=== PATIENT | male | born 1955 | race Caucasian/White ===

== ENCOUNTER 2022-12-05 10:59 | Inpatient (IN) | payer MEDICARE, OTHER ==
[~2022-12-05] VITALS: Ht 188 cm; Wt 101.2 kg
[2022-12-05] VITALS (13 sets, daily range): BP systolic 102–139; BP diastolic 62–108
[2022-12-05] MEDS ORDERED: DILTIAZEM HCL 5 MG/ML 5 ML VIAL IV ONE (11:15)
[2022-12-05 11:16] LABS: BASOPHILS % 0.3 % (0.0-1.0); EOSINOPHILS # (AUTO) 0.1 (0.0-0.4); HEMATOCRIT 44.7 % (38.2-49.6); LYMPHOCYTES # (AUTO) 0.7 (1.0-3.2); LYMPHOCYTES % 11.5 % (18.0-39.1); MEAN CORPUSCULAR HEMOGLOBIN 28.9 pg (28-32); MEAN CORPUSCULAR HGB CONC 31.3 g/dL (31-35); MEAN CORPUSCULAR VOLUME 92.4 fL (81-99); MONOCYTES # (AUTO) 0.5 (0.2-0.8); NEUTROPHILS # (AUTO) 4.7 (2.1-6.9); PLATELET COUNT 177 x10e3/uL (140-360); RED BLOOD COUNT 4.84 x10e6/uL (4.3-5.7); RED CELL DISTRIBUTION WIDTH 13.9 % (11.7-14.4)
[2022-12-05] MEDS ORDERED: DILTIAZEM HCL 5 MG/ML 5 ML VIAL IV STA (11:29)
[2022-12-05] MEDS ORDERED: DILTIAZEM HCL VIAL 5 ML ONE (11:32)
[2022-12-05 11:33] LABS: INR 1.16
[2022-12-05 11:34] LABS: ALBUMIN 2.6 g/dL (3.5-5.0); ALBUMIN/GLOBULIN RATIO 0.5 (0.8-2.0); CALCIUM 8.8 mg/dL (8.4-10.2); CREATININE, SERUM 0.98 mg/dL (0.72-1.25); PARTIAL THROMBOPLASTIN TIME 35.8 seconds (23.8-35.5)
[2022-12-05 12:00] LABS: CREATINE KINASE MB 1.8 ng/mL (0-5.0)
[2022-12-05] MEDS ORDERED: AMIODARONE HCL 150 MG/100 ML BAG IV ONE (12:00)
[2022-12-05] MEDS ORDERED: ONDANSETRON HCL INJ 2MG/ML 2ML 2 MG/ML VIAL IV PRN ×2 (13:00→13:45)
[2022-12-05] MEDS ORDERED: SODIUM CHLORIDE FLUSH 10 ML SYR INJ PRN (13:00)
[2022-12-05] MEDS ORDERED: METOPROLOL TARTRATE INJ 1 MG/ML VIAL IV PRN (13:45)
[2022-12-05] MEDS ORDERED: METOPROLOL TARTRATE INJ 1 MG/ML VIAL IV ONE (13:45)
[2022-12-05] MEDS ORDERED: TRAMADOL HCL 50 MG TAB PO PRN (13:45)
[2022-12-05] MEDS ORDERED: METOPROLOL TARTRATE 25 MG TAB PO SCH (14:00)
[2022-12-05] MEDS ORDERED: ALBUMIN 25% 12.5GM 50ML 150 ML IV ONE (14:14)
[2022-12-05 16:28] LABS: BODY FLUID APPEARANCE SL.CLOUDY; BODY FLUID COLOR YELLOW; BODY FLUID TYPE PERITONEAL; RBC,BODY FLUID 1000 cells/uL; WBC,BODY FLUID 563 cells/uL
[2022-12-05] MEDS ORDERED: AMIODARONE HCL 200 MG TAB PO SCH (17:00)
[2022-12-05] MEDS: DRONEDARONE 400 MG TAB PO SCH (17:32)
[2022-12-05] MEDS: SPIRONOLACTONE 25 MG TAB PO SCH (17:32)
[2022-12-05 17:40] LABS: LYMPHOCYTES,BODY FLUID 30 %; MONO/MACROPHG,BODY FLUID 16 %; NEUTROPHILS,BODY FLUID 54 %
[2022-12-05] MEDS ORDERED: ACETAMINOPHEN 325 MG TAB PO PRN (18:00)
[2022-12-05] MEDS ORDERED: ALEVE220 M1 PO (18:01)
[2022-12-05] MEDS ORDERED: METHADONE (18:01)
[2022-12-05] MEDS ORDERED: PREVACID30 MG PO (18:01)
[2022-12-05 20:07] LABS: CREATINE KINASE MB 1.8 ng/mL (0-5.0)
[2022-12-05] MEDS: APIXABAN 5 MG TABLET PO SCH (20:19)
[2022-12-05] MEDS: MELATONIN 3 MG TAB PO SCH (20:19)
[2022-12-05] MEDS: METOPROLOL TARTRATE 50 MG TAB PO SCH (20:20)
[2022-12-06] VITALS (10 sets, daily range): BP systolic 98–134; BP diastolic 67–88
[2022-12-06] MEDS: METOPROLOL TARTRATE 50 MG TAB PO SCH (06:03)
[2022-12-06 07:32] LABS: BASOPHILS % 0.3 % (0.0-1.0); EOSINOPHILS # (AUTO) 0.1 (0.0-0.4); HEMATOCRIT 35.3 % (38.2-49.6); LYMPHOCYTES # (AUTO) 0.8 (1.0-3.2); LYMPHOCYTES % 21.1 % (18.0-39.1); MEAN CORPUSCULAR HEMOGLOBIN 28.6 pg (28-32); MEAN CORPUSCULAR HGB CONC 31.2 g/dL (31-35); MEAN CORPUSCULAR VOLUME 91.9 fL (81-99); MONOCYTES # (AUTO) 0.5 (0.2-0.8); MONOCYTES % 11.6 % (4.4-11.3); NEUTROPHILS # (AUTO) 2.6 (2.1-6.9); NEUTROPHILS % 64.7 % (38.7-80.0); PLATELET COUNT 114 x10e3/uL (140-360); RED BLOOD COUNT 3.84 x10e6/uL (4.3-5.7)
[2022-12-06 08:08] LABS: ALBUMIN 2.4 g/dL (3.5-5.0); ALBUMIN/GLOBULIN RATIO 0.6 (0.8-2.0); CREATININE, SERUM 0.76 mg/dL (0.72-1.25)
[2022-12-06] MEDS: SENNOSIDES 8.6 MG TAB PO SCH (08:08)
[2022-12-06] MEDS: SPIRONOLACTONE 25 MG TAB PO SCH ×2 (08:09→18:03)
[2022-12-06] MEDS: APIXABAN 5 MG TABLET PO SCH ×2 (08:09→18:03)
[2022-12-06] MEDS: FUROSEMIDE 40 MG TAB PO SCH (08:09)
[2022-12-06] MEDS: DRONEDARONE 400 MG TAB PO SCH ×2 (08:11→18:04)
[2022-12-06] MEDS: ASPIRIN 81 MG ENTERIC COATED PO SCH (08:12)
[2022-12-06] MEDS ORDERED: MULTAQ 400MG T400 MG PO ×2 (10:11→11:21)
[2022-12-06] MEDS ORDERED: TOPROL XL50 MG PO (11:21)
[2022-12-06] MEDS ORDERED: ELIQUIS5 MG PO (11:21)
[2022-12-06] MEDS ORDERED: ALDACTONE25 MG PO (11:21)
[2022-12-06] MEDS ORDERED: FUROSEMIDE40 MG PO (11:21)
[2022-12-06] MEDS ORDERED: CEFTRIAXONE 2 GM in SODIUM CHLORIDE 0.9% 100 ML IV ONE (16:30)
[2022-12-06] MEDS ORDERED: SODIUM CHLORIDE 0.9% 250ML 250 ML ONE (18:10)
[2022-12-06] MEDS: MELATONIN 3 MG TAB PO SCH (20:32)
[2022-12-07] VITALS (9 sets, daily range): BP systolic 99–128; BP diastolic 65–82
[2022-12-07 06:13] LABS: BASOPHILS % 0.3 % (0.0-1.0); EOSINOPHILS # (AUTO) 0.1 (0.0-0.4); EOSINOPHILS % 2.7 % (0.0-6.0); HEMATOCRIT 36.3 % (38.2-49.6); HEMOGLOBIN 11.4 g/dL (14.0-18.0); LYMPHOCYTES # (AUTO) 0.9 (1.0-3.2); MEAN CORPUSCULAR HEMOGLOBIN 28.6 pg (28-32); MEAN CORPUSCULAR HGB CONC 31.4 g/dL (31-35); MEAN CORPUSCULAR VOLUME 91.2 fL (81-99); MONOCYTES # (AUTO) 0.5 (0.2-0.8); MONOCYTES % 14.3 % (4.4-11.3); NEUTROPHILS # (AUTO) 2.1 (2.1-6.9); NEUTROPHILS % 57.4 % (38.7-80.0); PLATELET COUNT 115 x10e3/uL (140-360); RED BLOOD COUNT 3.98 x10e6/uL (4.3-5.7); RED CELL DISTRIBUTION WIDTH 13.5 % (11.7-14.4)
[2022-12-07 06:40] LABS: ANION GAP 10.6 mmol/L (8-16); CALCIUM 7.9 mg/dL (8.4-10.2); CREATININE, SERUM 0.84 mg/dL (0.72-1.25); POTASSIUM 3.6 mmol/L (3.5-5.1)
[2022-12-07] MEDS: METHADONE HCL 10 MG TAB PO SCH (09:00)
[2022-12-07] MEDS: SPIRONOLACTONE 25 MG TAB PO SCH ×2 (09:05→17:05)
[2022-12-07] MEDS: APIXABAN 5 MG TABLET PO SCH ×2 (09:06→17:06)
[2022-12-07] MEDS: ASPIRIN 81 MG ENTERIC COATED PO SCH (09:06)
[2022-12-07] MEDS: METOPROLOL SUCCINATE 50 MG TAB XL PO SCH (09:06)
[2022-12-07] MEDS: DRONEDARONE 400 MG TAB PO SCH ×2 (09:07→17:05)
[2022-12-07] MEDS: FUROSEMIDE 40 MG TAB PO SCH (09:07)
[2022-12-07] MEDS: SENNOSIDES 8.6 MG TAB PO SCH (09:07)
[2022-12-07] MEDS: CEFTRIAXONE 2 GM in SODIUM CHLORIDE 0.9% 100 ML IV SCH (13:18)
[2022-12-07] MEDS: MELATONIN 3 MG TAB PO SCH (20:17)
[2022-12-08 05:55] LABS: BASOPHILS % 0.5 % (0.0-1.0); EOSINOPHILS # (AUTO) 0.1 (0.0-0.4); EOSINOPHILS % 2.5 % (0.0-6.0); HEMATOCRIT 35.1 % (38.2-49.6); HEMOGLOBIN 11.2 g/dL (14.0-18.0); MEAN CORPUSCULAR HEMOGLOBIN 28.9 pg (28-32); MEAN CORPUSCULAR HGB CONC 31.9 g/dL (31-35); MEAN CORPUSCULAR VOLUME 90.7 fL (81-99); MONOCYTES # (AUTO) 0.5 (0.2-0.8); MONOCYTES % 13.7 % (4.4-11.3); NEUTROPHILS % 55.8 % (38.7-80.0); PLATELET COUNT 129 x10e3/uL (140-360); RED BLOOD COUNT 3.87 x10e6/uL (4.3-5.7); RED CELL DISTRIBUTION WIDTH 13.7 % (11.7-14.4)
[2022-12-08 06:21] LABS: ANION GAP 13.6 mmol/L (8-16); CALCIUM 7.8 mg/dL (8.4-10.2); CREATININE, SERUM 0.84 mg/dL (0.72-1.25); MAGNESIUM 1.9 MG/DL (1.3-2.1); PHOSPHORUS 3.7 MG/DL (2.3-4.7); POTASSIUM 3.6 mmol/L (3.5-5.1)
[2022-12-08 08:15] VITALS: BP 99/66
[2022-12-08] MEDS ORDERED: DOCUSATE SODIUM 100 MG CAP PO SCH (09:00)
[2022-12-08] MEDS: METOPROLOL SUCCINATE 50 MG TAB XL PO SCH (09:00)
[2022-12-08] MEDS: SENNOSIDES 8.6 MG TAB PO SCH (09:19)
[2022-12-08] MEDS: FUROSEMIDE 40 MG TAB PO SCH (09:19)
[2022-12-08] MEDS: CEFTRIAXONE 2 GM in SODIUM CHLORIDE 0.9% 100 ML IV SCH (09:20)
[2022-12-08] MEDS: DRONEDARONE 400 MG TAB PO SCH (09:20)
[2022-12-08] MEDS: ASPIRIN 81 MG ENTERIC COATED PO SCH (09:20)
[2022-12-08] MEDS: APIXABAN 5 MG TABLET PO SCH (09:21)
[2022-12-08] MEDS: SPIRONOLACTONE 25 MG TAB PO SCH (09:22)
[2022-12-08] MEDS: METHADONE HCL 10 MG TAB PO SCH (09:22)
[2022-12-08] MEDS ORDERED: CIPRO500 MG PO (10:49)
[2022-12-08 12:17] VITALS: BP 105/75
[2022-12-08] MEDS ORDERED: ONDANSETRON HCL 4 MG ORAL DISINTEGRATING TAB PO PRN (12:45)
== END 2022-12-08 15:00 | disposition home or self-care (01) | DRG 432 ==
LOC: ER 11:09 → ERHOLD 13:06 → OBSVTOIN 13:06 → ICU 18:30 → MED/SURG3 12-06 14:30
PROVIDERS: ADMIT Family Medicine Adult Medicine; ATTEND Family Medicine Adult Medicine
PROC: 0W9G3ZZ Drainage of Peritoneal Cavity, Percutaneous Approach (ICD-10-PCS; principal; 2022-12-05)
DX: K70.31 Alcoholic cirrhosis of liver with ascites (principal); I50.43 Acute on chronic combined systolic (congestive) and diastolic (congestive) heart failure; K65.2 Spontaneous bacterial peritonitis; I48.20 Chronic atrial fibrillation, unspecified; K76.6 Portal hypertension; D61.818 Other pancytopenia; I11.0 Hypertensive heart disease with heart failure; F10.20 Alcohol dependence, uncomplicated; I08.3 Combined rheumatic disorders of mitral, aortic and tricuspid valves; F19.11 Other psychoactive substance abuse, in remission; F11.90 Opioid use, unspecified, uncomplicated; J44.9 Chronic obstructive pulmonary disease, unspecified; I27.20 Pulmonary hypertension, unspecified; R16.1 Splenomegaly, not elsewhere classified; F17.290 Nicotine dependence, other tobacco product, uncomplicated; Z90.89 Acquired absence of other organs; Z59.6 Low income; Z90.49 Acquired absence of other specified parts of digestive tract; Z98.1 Arthrodesis status; Z90.79 Acquired absence of other genital organ(s); Z82.3 Family history of stroke; Z80.9 Family history of malignant neoplasm, unspecified; Z83.79 Family history of other diseases of the digestive system; Z79.899 Other long term (current) drug therapy; Z79.1 Long term (current) use of non-steroidal anti-inflammatories (NSAID)
CPT/HCPCS: 36415; 49083; 71045; 76700; 76705; 80048; 80053; 82040; 82140; 82248; 82550; 82553; 83735; 83880; 84100; 84157; 84443; 84484; 85025; 85610; 85730; 86704; 87070; 87205; 87340; 88112; 88300; 88305; 89051; 93005; 93306; 94799; 99285; C1729; J0696; J7050

== ENCOUNTER → 2022-12-05 | Outpatient (CLI) | payer MEDICARE ==
[~2022-12-05] MED LIST: ALDACTONE25 MG PO; ALEVE220 M1 PO; CIPRO500 MG PO; ELIQUIS5 MG PO; FUROSEMIDE40 MG PO; METHADONE; MULTAQ 400MG T400 MG PO; PREVACID30 MG PO; TOPROL XL50 MG PO
[2022-12-05 11:21] LABS: INR 1.13; PARTIAL THROMBOPLASTIN TIME 34.5 seconds (23.8-35.5); PROTHROMBIN TIME 14.7 seconds (11.9-14.5)
== END ==
LOC: US 10:03
PROVIDERS: ATTEND Family Medicine Adult Medicine
DX: R14.0 Abdominal distension (gaseous) (principal)
CPT/HCPCS: 36415; 76705; 85610; 85730

== ENCOUNTER 2023-01-13 21:02 | Emergency (ER) | payer MEDICARE, OTHER ==
[~2023-01-13] VITALS: Ht 188 cm; Wt 101.2 kg
[2023-01-13] MEDS ORDERED: ONDANSETRON HCL INJ 2MG/ML 2ML 2 MG/ML VIAL ONE (23:47)
[2023-01-13] MEDS ORDERED: SODIUM CHLORIDE 0.9% 1000ML 1,000 ML ONE (23:47)
[2023-01-13] MEDS ORDERED: ONDANSETRON HCL INJ 2MG/ML 2ML 2 MG/ML VIAL IV STA (23:48)
[2023-01-13] MEDS ORDERED: SODIUM CHLORIDE FLUSH 10 ML SYR IV PRN (23:49)
[2023-01-13] MEDS ORDERED: SODIUM CHLORIDE 0.9% 1000ML 1,000 ML IV ONE (23:49)
[2023-01-13 23:54] LABS: BASOPHILS % 0.4 % (0.0-1.0); EOSINOPHILS % 0.1 % (0.0-6.0); HEMOGLOBIN 13.7 g/dL (14.0-18.0); LYMPHOCYTES # (AUTO) 0.6 (1.0-3.2); LYMPHOCYTES % 8.7 % (18.0-39.1); MEAN CORPUSCULAR HEMOGLOBIN 29.2 pg (28-32); MEAN CORPUSCULAR HGB CONC 33.4 g/dL (31-35); MEAN CORPUSCULAR VOLUME 87.4 fL (81-99); MONOCYTES # (AUTO) 0.2 (0.2-0.8); MONOCYTES % 3.2 % (4.4-11.3); NEUTROPHILS # (AUTO) 6.3 (2.1-6.9); NEUTROPHILS % 86.8 % (38.7-80.0); PLATELET COUNT 137 x10e3/uL (140-360); RED BLOOD COUNT 4.69 x10e6/uL (4.3-5.7); RED CELL DISTRIBUTION WIDTH 13.8 % (11.7-14.4)
[2023-01-13 23:58] LABS: INR 1.14; PROTHROMBIN TIME 14.8 seconds (11.9-14.5)
[2023-01-13 23:59] LABS: PARTIAL THROMBOPLASTIN TIME 34.3 seconds (23.8-35.5)
[2023-01-14 00:08] LABS: ALBUMIN 3.3 g/dL (3.5-5.0); ALBUMIN/GLOBULIN RATIO 0.6 (0.8-2.0); ANION GAP 17.8 mmol/L (8-16); CALCIUM 9.2 mg/dL (8.4-10.2); CREATININE, SERUM 0.87 mg/dL (0.72-1.25); POTASSIUM 3.8 mmol/L (3.5-5.1)
[2023-01-14] MEDS ORDERED: IOPAMIDOL 370 MG/ML 100 ML INFUS..BTL INJ ONE (00:36)
[2023-01-14 02:51] LABS: CLARITY,URINE CLEAR (CLEAR); COLOR,URINE YELLOW (YELLOW); KETONES,URINE NEGATIVE (NEGATIVE); LEUKOCYTE ESTERASE ,URINE NEGATIVE (NEGATIVE); NITRITE,URINE NEGATIVE (NEGATIVE); PROTEIN,URINE DIPSTICK NEGATIVE (NEGATIVE); URINE UROBILINOGEN 0.2 mg/dL (0.2 - 1)
[2023-01-14 02:57] LABS: BACTERIA,URINE RARE /HPF; WBC,URINE (MAN) 0-5 /HPF (0-5)
[2023-01-14] MEDS ORDERED: ONDANSETRON ODT4 MG PO (03:18)
== END 2023-01-14 03:30 | disposition home or self-care (01) ==
LOC: ER 21:12
DX: R10.11 Right upper quadrant pain (principal); R10.31 Right lower quadrant pain; K74.60 Unspecified cirrhosis of liver; R11.2 Nausea with vomiting, unspecified; R19.7 Diarrhea, unspecified; Z20.822 Contact with and (suspected) exposure to COVID-19; R94.31 Abnormal electrocardiogram [ECG] [EKG]
CPT/HCPCS: 36415; 71045; 74177; 80053; 81001; 83690; 84484; 85025; 85610; 85730; 93005; 99284; J2405; J7030; Q9967; U0002

== ENCOUNTER → 2023-01-14 | Day surgery (SDC) | payer MEDICARE, OTHER ==
[2023-01-06 16:20] LABS: BASOPHILS % 0.2 % (0.0-1.0); EOSINOPHILS # (AUTO) 0.1 (0.0-0.4); EOSINOPHILS % 2.1 % (0.0-6.0); HEMATOCRIT 36.1 % (38.2-49.6); LYMPHOCYTES % 22.8 % (18.0-39.1); MEAN CORPUSCULAR HEMOGLOBIN 29.3 pg (28-32); MEAN CORPUSCULAR HGB CONC 33.2 g/dL (31-35); MEAN CORPUSCULAR VOLUME 88.3 fL (81-99); MONOCYTES # (AUTO) 0.4 (0.2-0.8); MONOCYTES % 9.4 % (4.4-11.3); NEUTROPHILS # (AUTO) 2.9 (2.1-6.9); NEUTROPHILS % 65.3 % (38.7-80.0); PLATELET COUNT 141 x10e3/uL (140-360); RED BLOOD COUNT 4.09 x10e6/uL (4.3-5.7); RED CELL DISTRIBUTION WIDTH 14.2 % (11.7-14.4)
[2023-01-06 16:30] LABS: INR 1.23; PROTHROMBIN TIME 15.7 seconds (11.9-14.5)
[2023-01-06 16:31] LABS: PARTIAL THROMBOPLASTIN TIME 36.4 seconds (23.8-35.5)
[2023-01-06 16:37] LABS: ALBUMIN 2.9 g/dL (3.5-5.0); ALBUMIN/GLOBULIN RATIO 0.6 (0.8-2.0); ANION GAP 12.8 mmol/L (8-16); CALCIUM 8.6 mg/dL (8.4-10.2); CREATININE, SERUM 0.8 mg/dL (0.72-1.25); POTASSIUM 3.8 mmol/L (3.5-5.1)
[~2023-01-14] MED LIST changes: +CEFTRIAXONE 1 GM VIAL ONE; +ETOMIDATE 2 MG/ML 10 ML INJ IV ONE; +FENTANYL CITRATE/PF 100MCG/2 ML INJ ONE; +GLUCAGON FOR INJ 1 MG VIAL ONE; +LABETALOL HCL 5 MG/ML 20ML VIAL ONE; +LIDOCAINE HCL 2% LOCAL INJ 5 ML SDV VIAL INJ ONE; +METOCLOPRAMIDE HCL 10 MG/2ML VIAL ONE; +MIDAZOLAM HCL 2 MG/2 ML VIAL ONE; +ONDANSETRON ODT4 MG PO; +POVIDONE IODINE 0.05% 0.05 % ML PO ONE; +PROPOFOL IV EMULSION 10 MG/ML 20 ML VIAL ONE; +PROPOFOL IV EMULSION 10 MG/ML 50 ML VIAL IV ONE; +TRAMADOL HCL 50 MG TAB ONE
[2023-01-14 13:12] VITALS: TEMP 97.2
[2023-01-14 14:00] VITALS: BP 143/85; PULSE 93; RESP 18; O2SAT 97
== END | disposition home or self-care (01) ==
LOC: OR 09:25
PROVIDERS: ATTEND Internal Medicine Gastroenterology
DX: K74.60 Unspecified cirrhosis of liver (principal); D12.4 Benign neoplasm of descending colon; D12.2 Benign neoplasm of ascending colon; I85.10 Secondary esophageal varices without bleeding; K29.50 Unspecified chronic gastritis without bleeding; K76.6 Portal hypertension; K31.89 Other diseases of stomach and duodenum; K64.8 Other hemorrhoids; I44.0 Atrioventricular block, first degree; I48.91 Unspecified atrial fibrillation; I11.0 Hypertensive heart disease with heart failure; I50.9 Heart failure, unspecified; F17.290 Nicotine dependence, other tobacco product, uncomplicated; Z01.812 Encounter for preprocedural laboratory examination; Z79.02 Long term (current) use of antithrombotics/antiplatelets; Z79.899 Other long term (current) drug therapy
CPT/HCPCS: 36415 ×2; 43239; 43244; 45385; 71045; 74177; 80053 ×2; 81001; 83690; 84484; 85025 ×2; 85610 ×2; 85730 ×2; 88305; 88342; 93005 ×3; 99284; C9113; J0696; J1610; J2001; J2250; J2405; J2704 ×2; J2765; J3010; J3490; J7030; Q9967; U0002; 43235; 45378; 88304; 88312

== ENCOUNTER → 2023-01-16 | Outpatient (CLI) | payer MEDICARE, OTHER ==
[~2023-01-16] MED LIST changes: -CEFTRIAXONE 1 GM VIAL ONE; -ETOMIDATE 2 MG/ML 10 ML INJ IV ONE; -FENTANYL CITRATE/PF 100MCG/2 ML INJ ONE; -GLUCAGON FOR INJ 1 MG VIAL ONE; -LABETALOL HCL 5 MG/ML 20ML VIAL ONE; -LIDOCAINE HCL 2% LOCAL INJ 5 ML SDV VIAL INJ ONE; -METOCLOPRAMIDE HCL 10 MG/2ML VIAL ONE; -MIDAZOLAM HCL 2 MG/2 ML VIAL ONE; -POVIDONE IODINE 0.05% 0.05 % ML PO ONE; -PROPOFOL IV EMULSION 10 MG/ML 20 ML VIAL ONE; -PROPOFOL IV EMULSION 10 MG/ML 50 ML VIAL IV ONE; -TRAMADOL HCL 50 MG TAB ONE
== END ==
LOC: US 10:18
PROVIDERS: ATTEND Family Medicine Adult Medicine
DX: R14.0 Abdominal distension (gaseous) (principal); R18.8 Other ascites
CPT/HCPCS: 49083; C1729

== ENCOUNTER → 2023-04-27 | Day surgery (SDC) | payer MEDICARE, OTHER ==
[2023-04-23 09:48] LABS: BASOPHILS % 0.5 % (0.0-1.0); EOSINOPHILS # (AUTO) 0.1 (0.0-0.4); EOSINOPHILS % 1.4 % (0.0-6.0); HEMATOCRIT 39.7 % (38.2-49.6); HEMOGLOBIN 13.4 g/dL (14.0-18.0); LYMPHOCYTES # (AUTO) 0.8 (1.0-3.2); LYMPHOCYTES % 19.1 % (18.0-39.1); MEAN CORPUSCULAR HEMOGLOBIN 29.3 pg (28-32); MEAN CORPUSCULAR HGB CONC 33.8 g/dL (31-35); MEAN CORPUSCULAR VOLUME 86.7 fL (81-99); MONOCYTES # (AUTO) 0.4 (0.2-0.8); MONOCYTES % 8.5 % (4.4-11.3); PLATELET COUNT 77 x10e3/uL (140-360); RED BLOOD COUNT 4.58 x10e6/uL (4.3-5.7); RED CELL DISTRIBUTION WIDTH 13.4 % (11.7-14.4)
[2023-04-23 10:03] LABS: INR 1.07; PARTIAL THROMBOPLASTIN TIME 30.3 seconds (23.8-35.5); PROTHROMBIN TIME 14.4 seconds (11.9-14.5)
[2023-04-23 10:07] LABS: ALBUMIN 3.3 g/dL (3.5-5.0); ALBUMIN/GLOBULIN RATIO 0.6 (0.8-2.0); CALCIUM 9.4 mg/dL (8.4-10.2); CREATININE, SERUM 1.19 mg/dL (0.72-1.25)
[~2023-04-27] MED LIST changes: +FENTANYL CITRATE/PF 100MCG/2 ML INJ IV ONE; +FENTANYL CITRATE/PF 100MCG/2 ML INJ ONE; +LACTATED RINGER'S 1,000 ML ONE; +LIDOCAINE HCL 2% LOCAL INJ 5 ML SDV VIAL INJ ONE; +METOCLOPRAMIDE HCL 10 MG/2ML VIAL IV ONE; +METOCLOPRAMIDE HCL 10 MG/2ML VIAL ONE; +MIDAZOLAM HCL 2 MG/2 ML VIAL ONE; +ONDANSETRON HCL INJ 2MG/ML 2ML 2 MG/ML VIAL IV ONE; +ONDANSETRON HCL INJ 2MG/ML 2ML 2 MG/ML VIAL ONE; +PROPOFOL IV EMULSION 10 MG/ML 20 ML VIAL ONE; +PROPRANOLOL HCL10 MG PO; +PROTONIX20 MG PO
[2023-04-27 08:02] VITALS: TEMP 98.3
[2023-04-27 08:45] VITALS: BP 179/104; PULSE 94; RESP 14; O2SAT 97
== END | disposition home or self-care (01) ==
LOC: OR 07:22
PROVIDERS: ATTEND Internal Medicine Gastroenterology
DX: K70.30 Alcoholic cirrhosis of liver without ascites (principal); I85.10 Secondary esophageal varices without bleeding; K76.6 Portal hypertension; K31.89 Other diseases of stomach and duodenum; K21.9 Gastro-esophageal reflux disease without esophagitis; I48.91 Unspecified atrial fibrillation; I11.0 Hypertensive heart disease with heart failure; I50.9 Heart failure, unspecified; F17.200 Nicotine dependence, unspecified, uncomplicated; Z01.810 Encounter for preprocedural cardiovascular examination; Z01.812 Encounter for preprocedural laboratory examination; Z79.02 Long term (current) use of antithrombotics/antiplatelets; Z79.899 Other long term (current) drug therapy
CPT/HCPCS: 36415 ×2; 43244; 80053; 82948; 85025; 85610; 85730; 93005; J2001; J2250; J2405; J2704; J2765; J3010; J7121; 43235; 43255

== ENCOUNTER → 2023-05-27 | Outpatient (CLI) | payer MEDICARE, OTHER ==
[~2023-05-27] MED LIST changes: -FENTANYL CITRATE/PF 100MCG/2 ML INJ IV ONE; -FENTANYL CITRATE/PF 100MCG/2 ML INJ ONE; -LACTATED RINGER'S 1,000 ML ONE; -LIDOCAINE HCL 2% LOCAL INJ 5 ML SDV VIAL INJ ONE; -METOCLOPRAMIDE HCL 10 MG/2ML VIAL IV ONE; -METOCLOPRAMIDE HCL 10 MG/2ML VIAL ONE; -MIDAZOLAM HCL 2 MG/2 ML VIAL ONE; -ONDANSETRON HCL INJ 2MG/ML 2ML 2 MG/ML VIAL IV ONE; -ONDANSETRON HCL INJ 2MG/ML 2ML 2 MG/ML VIAL ONE; -PROPOFOL IV EMULSION 10 MG/ML 20 ML VIAL ONE
[2023-05-27 13:00] LABS: HEMOGLOBIN 14.2 g/dL (14.0-18.0)
[2023-05-27 13:14] LABS: INR 1.25; PARTIAL THROMBOPLASTIN TIME 37.5 seconds (23.8-35.5); PROTHROMBIN TIME 16.5 seconds (11.9-14.5)
== END ==
LOC: US 12:05
PROVIDERS: ATTEND Nurse Practitioner
DX: K70.30 Alcoholic cirrhosis of liver without ascites (principal)
CPT/HCPCS: 36415; 49083; 85014; 85049; 85610; 85730

== ENCOUNTER → 2023-06-01 | Outpatient (CLI) | payer MEDICARE, OTHER | LOC: US 12:15 | PROVIDERS: ATTEND Nurse Practitioner | DX: K70.30 Alcoholic cirrhosis of liver without ascites (principal) | CPT/HCPCS: 76705 ==

== ENCOUNTER → 2023-09-09 | Outpatient (REF) | payer MEDICARE, OTHER ==
[~2023-09-09] MED LIST changes: +ALBUMIN 25% 12.5GM 50ML 100 ML IV ONE; +FENTANYL CITRATE/PF 100MCG/2 ML INJ ONE
== END ==
LOC: US 08:57
PROVIDERS: ATTEND Nurse Practitioner
DX: K70.31 Alcoholic cirrhosis of liver with ascites (principal)
CPT/HCPCS: 49083; J3010